=== PATIENT | female | born 1995 | race Caucasian/White ===

== ENCOUNTER → 2023-11-29 13:42 | Outpatient (REF) | payer BC, SELFPAY | LOC: MRI 3T 13:42 | PROVIDERS: ATTENDING PHYSICIAN Orthopaedic Surgery; FAMILY PHYSICIAN Family Medicine | DX: M25.851 Other specified joint disorders, right hip (principal); M25.551 Pain in right hip | CPT/HCPCS: 27093; 73525; 73722 ==